=== PATIENT | male | born 1985 | race Caucasian/White ===

== ENCOUNTER 2019-02-01 22:24 | Emergency (ER) | payer OTHER ==
[2019-02-01 22:50] VITALS: BP 149/81; PULSE 95; TEMP 98.5; BMI 25.0
--- NOTE | 2019-02-01 22:58 | PDOC ---
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 Pt not immuno compromised. No further medical complaints/concerns at this time Past History - Past Medical History Allergies/Adverse Reactions: Allergies Allergy/AdvReac Type Severity Reaction Status Date / Time No Known Allergies Allergy Verified 02/01/19 22:31 Home Medications: Ambulatory Orders NK [No Known Home Medication] 02/01/19 COPD: No - Suicide/Smoking/Psychosocial Hx Smoking History: Never smoked Have you smoked in the past 12 months: No Information on smoking cessation initiated: No Hx Alcohol Use: No Drug/Substance Use Hx: No Review of Systems - Review of Systems Constitutional: No: Chills, Fever Integumentary: No: Erythema, Lesions, Pruritus, Rash *Physical Exam - Vital Signs Last Vital Signs Temp Pulse Resp BP Pulse Ox 98.5 F 95 H 18 149/81 98 02/01/19 22:32 02/01/19 22:32 02/01/19 22:32 02/01/19 22:32 02/01/19 22:32 - Physical Exam General Appearance: Yes: Nourished, Appropriately Dressed. No: Apparent Distress HEENT: positive: EOMI Neck: positive: Supple. negative: Carotid bruit Respiratory/Chest: positive: Lungs Clear, Normal Breath Sounds Cardiovascular: positive: Regular Rhythm, Regular Rate, S1, S2. negative: Edema , JVD, Murmur Vascular Pulses: Dorsalis-Pedis (R): 4+, Doralis-Pedis (L): 4+ Gastrointestinal/Abdominal: positive: Flat, Soft Extremity: positive: Normal Capillary Refill, Normal Inspection, Normal Range of Motion, Other (no open wounds on forearm ). 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 Pt not immuno compromised. No further medical complaints/concerns at this time vitals wnl HIV MDcalc risk stratified: Or, 1 in [id number]. PEP treatment not indicated, according to the article. Shared risks with pt, shared in decision making process, agrees no prophylactic medications required at this time Pt agrees and understands DC plans. *DC/Admit/Observation/Transfer Diagnosis at time of Disposition: Hx of exposure to hazardous bodily fluids - Discharge Dispostion Disposition: HOME Condition at time of disposition: Stable Decision to Admit order: No - Referrals - Patient Instructions Printed Discharge Instructions: How to Handle Body Fluid Exposure -- Non- Healthcare Worker (At Home, [facility] Additional Instructions: please see your Primary Doctor within the next 48 hours. Return to the ER for new or concerning symptoms including but not limited to: flu like symptoms, fevers, redness/warmth to the forearm. Thank you - Post Discharge Activity Forms/Work/School Notes: Back to Work
--- NOTE | 2019-02-01 23:07 | PDOC ---
Attending Attestation - Resident Resident Name: ArikKosta - ED Attending Attestation I have performed the following: I have examined & evaluated the patient, The case was reviewed & discussed with the resident, I agree w/resident's findings & plan, Exceptions are as noted - HPI HPI: 02/01/19 23:06 Reviewed Residents HPI - Physicial Exam PE: 02/01/19 23:06 Reviewed Residents PE - Medical Decision Making 02/01/19 23:06 Low risk body fluid exposure to intact skin no indication for treatment treatment offered and declined by officers Findings, the need for follow-up and strict return instructions discussed with patient.
== END 2019-02-01 23:16 | disposition home or self-care (01) ==
LOC: JER 22:24
DX: Z77.21 Contact with and (suspected) exposure to potentially hazardous body fluids (principal); Y93.89 Activity, other specified; Y35.891A Legal intervention involving other specified means, law enforcement official injured, initial encounter; Y92.89 Other specified places as the place of occurrence of the external cause; Y99.0 Civilian activity done for income or pay
CPT/HCPCS: 99282-25

== ENCOUNTER 2020-08-18 00:13 | Emergency (ER) | payer OTHER ==
[2020-08-18 00:20] VITALS: BP 120/76; PULSE 64; TEMP 98.6; BMI 27.8
== END 2020-08-18 00:33 | disposition home or self-care (01) ==
LOC: FER 00:13
DX: M54.6 Pain in thoracic spine (principal)
CPT/HCPCS: 99282-25

== ENCOUNTER 2021-03-17 03:17 | Emergency (ER) | payer OTHER, BC ==
[2021-03-17 03:40] VITALS: BP 122/85; PULSE 74; TEMP 98.4; BMI 27.8
== END 2021-03-17 03:54 | disposition home or self-care (01) ==
LOC: FER 03:17
DX: Z77.128 Contact with and (suspected) exposure to other hazards in the physical environment (principal)
CPT/HCPCS: 99282-25

== ENCOUNTER 2022-07-21 18:18 | Emergency (ER) | payer BC, OTHER ==
[2022-07-21] MEDS ORDERED: IBUPROFEN 600 MG TABLET (FP) PO ONE ×2 (18:35→18:42)
[2022-07-21 18:41] VITALS: BP 124/84; PULSE 80; RESP 16; TEMP 98.7; BMI 27.7
== END 2022-07-21 18:47 | disposition home or self-care (01) ==
LOC: FER 18:18
DX: S59.902A Unspecified injury of left elbow, initial encounter (principal); X50.9XXA Other and unspecified overexertion or strenuous movements or postures, initial encounter
CPT/HCPCS: 99283-25

== ENCOUNTER 2022-11-17 22:56 | Emergency (ER) | payer OTHER ==
[2022-11-17 23:21] VITALS: BP 124/78; PULSE 67; RESP 18; TEMP 99.2; BMI 27.7
== END 2022-11-17 23:23 | disposition home or self-care (01) ==
LOC: FER 22:56
DX: M25.531 Pain in right wrist (principal); S66.911A Strain of unspecified muscle, fascia and tendon at wrist and hand level, right hand, initial encounter; X50.0XXA Overexertion from strenuous movement or load, initial encounter
CPT/HCPCS: 99282-25

== ENCOUNTER 2023-11-01 19:50 | Emergency (ER) | payer OTHER ==
[2023-11-01 20:00] VITALS: BP 123/90; PULSE 77; RESP 16; TEMP 98.5; BMI 27.7
[2023-11-01] MEDS ORDERED: IBUPROFEN 600 MG TABLET (FP) PO ONE (20:07)
[2023-11-01] MEDS: IBUPROFEN 600 MG TABLET (FP) PO ONE (20:09)
== END 2023-11-01 20:11 | disposition home or self-care (01) ==
LOC: FER 19:50
DX: S16.1XXA Strain of muscle, fascia and tendon at neck level, initial encounter (principal); S46.912A Strain of unspecified muscle, fascia and tendon at shoulder and upper arm level, left arm, initial encounter; Y04.0XXA Assault by unarmed brawl or fight, initial encounter; Y93.72 Activity, wrestling
CPT/HCPCS: 99283-25